=== PATIENT | female | born 2000 | race Caucasian/White ===

== ENCOUNTER 2024-10-02 13:36 | Emergency (ER) | payer OTHER ==
[~2024-10-02] VITALS: Ht 157.5 cm; Wt 82.0 kg
[2024-10-02 13:38] VITALS: O2SAT 98
[2024-10-02 15:05] LABS: CLARITY URINE CLOUDY (CLEAR); COLOR URINE YELLOW (YELLOW); GLUCOSE URINE NEGATIVE (NEGATIVE); KETONES URINE NEGATIVE (NEGATIVE); LEUKOCYTE ESTERASE URINE 3+ (NEGATIVE); NITRITE URINE NEGATIVE (NEGATIVE); OCCULT BLOOD URINE NEGATIVE (NEGATIVE); PROTEIN URINE NEGATIVE (NEGATIVE); SPECIFIC GRAVITY URINE 1.016 (1.005-1.030); UROBILINOGEN URINE 0.2 E.U./dL (0.2-1.0)
[2024-10-02 15:21] LABS: BASOPHILS % 0.2 % (0.0-2.0); EOSINOPHILS % 1.6 % (0.0-5.0); HEMATOCRIT. 34.2 % (36.0-48.0); HEMOGLOBIN. 10.6 g/dL (12.0-16.0); LYMPHOCYTES % 22.5 % (20.0-50.0); MEAN CORPUSCULAR HEMOGLOBIN 20.3 pg (28.0-32.0); MEAN CORPUSCULAR HGB CONC 31.1 g/dL (31.0-37.0); MEAN CORPUSCULAR VOLUME 65.2 fL (81.0-99.0); MONOCYTES % 8.4 % (2.0-8.0); NEUTROPHILS % 67.3 % (40.0-76.0); PLATELET 383 x1000/uL (130-400); RED BLOOD CELL COUNT 5.24 mill/uL (4.2-5.4); RED CELL DISTRIBUTION WIDTH 19.3 % (11.6-14.6); WHITE BLOOD COUNT 10.4 x1000/uL (4.5-11.0)
[2024-10-02 15:22] LABS: ADD RBC MORPHOLOGY YES; DIFFERENTIAL COMMENT 1
[2024-10-02 15:26] LABS: MUCUS URINE 2+ /lpf (< = 2+); RBC URINE 0-2 /hpf (0-2); SQUAMOUS EPITHELIAL CELL URINE 2+ /lpf (RARE/1+); WBC URINE 15-25 /hpf (0-2)
[2024-10-02 15:27] LABS: BACTERIA URINE 3+
[2024-10-02 15:28] LABS: CHLORIDE 109 mEq/L (98-107); POTASSIUM 4.3 mEq/L (3.5-5.1); SODIUM 140 mEq/L (136-145)
[2024-10-02 15:29] LABS: CARBON DIOXIDE 25 mEq/L (21-32)
[2024-10-02 15:30] LABS: CALCIUM 11.2 mg/dL (8.7-10.4)
[2024-10-02 15:33] LABS: HCG SCREEN NEGATIVE
[2024-10-02 15:34] LABS: CREATININE 0.7 mg/dL (0.6-1.0); GLUCOSE 107 mg/dL (70-105)
[2024-10-02 15:36] LABS: ALANINE AMINOTRANSFERASE 14 IU/L (10-49); ALBUMIN 4.4 g/dL (3.2-4.8); ASPARTATE AMINOTRANSFERASE 15 IU/L (<34); UREA NITROGEN BLOOD < 5 mg/dL (9-23)
[2024-10-02 15:37] LABS: BILIRUBIN TOTAL 0.5 mg/dL (0.1-1.0); PROTEIN TOTAL 7.8 g/dL (6.0-8.3)
[2024-10-02] MEDS: ONDANSETRON 4MG ODT PO ONE (16:11)
[2024-10-02] MEDS ORDERED: NITR100C MT (16:16)
[2024-10-02 16:27] VITALS: BP 131/80; PULSE 78; RESP 16; TEMP 36.66960; O2SAT 98
[2024-10-02 17:31] LABS: HYPOCHROMASIA 1+; MICROCYTOSIS 2+; PLATELET ESTIMATE NORMAL
== END 2024-10-02 16:28 | disposition home or self-care (01) ==
LOC: ER 13:49
DX: N39.0 Urinary tract infection, site not specified (principal); Z90.49 Acquired absence of other specified parts of digestive tract
CPT/HCPCS: 99284; 74176; 80053; 81003; 81025; 84703; 85025; 87086; 36415; Q0162

== ENCOUNTER 2024-10-20 12:58 | Emergency (ER) | payer OTHER ==
[~2024-10-20] VITALS: Ht 157.5 cm; Wt 82.0 kg
[~2024-10-20 12:58] MED LIST: NITR100C MT
[2024-10-20 13:03] VITALS: O2SAT 99
[2024-10-20 14:33] LABS: BASOPHILS % 0.3 % (0.0-2.0); EOSINOPHILS % 1.4 % (0.0-5.0); HEMATOCRIT. 34.4 % (36.0-48.0); HEMOGLOBIN. 10.5 g/dL (12.0-16.0); LYMPHOCYTES % 19.8 % (20.0-50.0); MEAN CORPUSCULAR HEMOGLOBIN 20.3 pg (28.0-32.0); MEAN CORPUSCULAR HGB CONC 30.5 g/dL (31.0-37.0); MEAN CORPUSCULAR VOLUME 66.6 fL (81.0-99.0); MEAN PLATELET VOLUME 7.7 fl (7.4-10.4); MONOCYTES % 6.7 % (2.0-8.0); NEUTROPHILS % 71.8 % (40.0-76.0); PLATELET 472 x1000/uL (130-400); RED BLOOD CELL COUNT 5.17 mill/uL (4.2-5.4); RED CELL DISTRIBUTION WIDTH 20.4 % (11.6-14.6); WHITE BLOOD COUNT 11.6 x1000/uL (4.5-11.0)
[2024-10-20 14:37] LABS: CHLORIDE 107 mEq/L (98-107); POTASSIUM 4.3 mEq/L (3.5-5.1); SODIUM 136 mEq/L (136-145)
[2024-10-20 14:38] LABS: CALCIUM 11.5 mg/dL (8.7-10.4); CARBON DIOXIDE 23 mEq/L (21-32)
[2024-10-20 14:42] LABS: DIFFERENTIAL COMMENT 1
[2024-10-20 14:43] LABS: ADD RBC MORPHOLOGY YES; CREATININE 0.7 mg/dL (0.6-1.0); GLUCOSE 92 mg/dL (70-105); UREA NITROGEN BLOOD 7 mg/dL (9-23)
[2024-10-20 15:37] LABS: B-HCG QUANTITATIVE 4137 mIU/mL (<3)
[2024-10-20 15:50] LABS: PLATELET ESTIMATE SLIGHTLY INCREASED
[2024-10-20 15:51] LABS: ANISOCYTOSIS 2+; HYPOCHROMASIA 2+; MICROCYTOSIS 2+
[2024-10-20 16:18] VITALS: BP 126/68; PULSE 80; RESP 16; TEMP 36.61404; O2SAT 99
== END 2024-10-20 16:20 | disposition home or self-care (01) ==
LOC: ER 12:58
DX: O20.0 Threatened abortion (principal); N83.201 Unspecified ovarian cyst, right side; Z3A.01 Less than 8 weeks gestation of pregnancy
CPT/HCPCS: 36415; 76801; 80048; 81025; 84702; 85025; 86850; 86900; 99284

== ENCOUNTER 2024-11-13 20:35 | Emergency (ER) | payer OTHER ==
[~2024-11-13] VITALS: Ht 157.5 cm; Wt 83.0 kg
[2024-11-13 20:56] VITALS: O2SAT 100
[2024-11-13 21:56] LABS: BASOPHILS % 0.2 % (0.0-2.0); EOSINOPHILS % 0.9 % (0.0-5.0); HEMATOCRIT. 34.6 % (36.0-48.0); HEMOGLOBIN. 10.6 g/dL (12.0-16.0); LYMPHOCYTES % 18.7 % (20.0-50.0); MEAN CORPUSCULAR HEMOGLOBIN 20.8 pg (28.0-32.0); MEAN CORPUSCULAR HGB CONC 30.6 g/dL (31.0-37.0); MEAN PLATELET VOLUME 8.1 fl (7.4-10.4); MONOCYTES % 10.1 % (2.0-8.0); NEUTROPHILS % 70.1 % (40.0-76.0); PLATELET 371 x1000/uL (130-400); RED CELL DISTRIBUTION WIDTH 19.5 % (11.6-14.6); WHITE BLOOD COUNT 11.1 x1000/uL (4.5-11.0)
[2024-11-13 22:01] LABS: CHLORIDE 107 mEq/L (98-107); POTASSIUM 4.4 mEq/L (3.5-5.1); SODIUM 138 mEq/L (136-145)
[2024-11-13 22:02] LABS: CALCIUM 12.3 mg/dL (8.7-10.4); CARBON DIOXIDE 24 mEq/L (21-32)
[2024-11-13 22:07] LABS: ADD RBC MORPHOLOGY YES; CREATININE 0.8 mg/dL (0.6-1.0); DIFFERENTIAL COMMENT 1; GLUCOSE 92 mg/dL (70-105); UREA NITROGEN BLOOD 7 mg/dL (9-23)
[2024-11-13 22:09] LABS: ALANINE AMINOTRANSFERASE 13 IU/L (10-49); ALBUMIN 4.4 g/dL (3.2-4.8); ASPARTATE AMINOTRANSFERASE 16 IU/L (<34); BILIRUBIN DIRECT 0.1 mg/dL (<=3.0)
[2024-11-13 22:10] LABS: BILIRUBIN TOTAL 0.4 mg/dL (0.1-1.0)
[2024-11-13 22:18] LABS: HYPOCHROMASIA 1+; PLATELET ESTIMATE NORMAL
[2024-11-13 22:19] LABS: MICROCYTOSIS 2+
[2024-11-13] MEDS ORDERED: ONDA4TAB50 MT (23:24)
[2024-11-14 00:30] VITALS: BP 125/67; PULSE 85; RESP 16; TEMP 36.94740; O2SAT 100
== END 2024-11-14 00:30 | disposition home or self-care (01) ==
LOC: ER 20:35
DX: O21.9 Vomiting of pregnancy, unspecified (principal); O99.111 Other diseases of the blood and blood-forming organs and certain disorders involving the immune mechanism complicating pregnancy, first trimester; Z90.49 Acquired absence of other specified parts of digestive tract; Z3A.09 9 weeks gestation of pregnancy
CPT/HCPCS: 36415; 80048; 80076; 85025; 99283